=== PATIENT | female | born 1955 | race Caucasian/White ===

== ENCOUNTER → 2016-05-05 | Outpatient (CLI) | payer OTHER ==
[~2016-05-05] MED LIST: ASC500 PO; FER325 PO; GABA100C14 PO; HYDR-906 PO; PANT40TA4 PO; POLY17PO6 PO; TRAZ150T65 PO; ULT50 PO
--- NOTE | 2016-05-05 10:56 | RADRPT ---
PROCEDURE: XR pelvis/left hip. CLINICAL INDICATION: Hip pain TECHNIQUE: AP pelvis/lateral left hip view available for review. COMPARISON: 04/25/2016 FINDINGS: There is a left total hip replacement. There is no evidence of loosening of the prosthesis. There is normal mineralization, architecture and alignment. No fractures, dislocation or osseous lesions a re identified. The right hip joint is unremarkable. The SI joints are unremarkable. There are nor mal soft tissues. IMPRESSION: Left total hip replacement. Otherwise unremarkable examination. RPTAT: HGDB .Anmol Bragg MD, MD Date Time Electronically viewed and signed by .Anmol Bragg MD, on 05/05/2016 10:56 .B/
== END | disposition home or self-care (01) ==
LOC: HKI 10:04
PROVIDERS: ATTEND Orthopaedic Surgery
DX: Z47.1 Aftercare following joint replacement surgery (principal); Z16.12 Extended spectrum beta lactamase (ESBL) resistance; Z96.642 Presence of left artificial hip joint
CPT/HCPCS: 73502; Z7500; G0463

== ENCOUNTER → 2016-06-02 | Outpatient (CLI) | payer OTHER ==
[~2016-06-02] MED LIST changes: +TRAM50TA2 PO; -ULT50 PO
--- NOTE | 2016-06-02 11:26 | RADRPT ---
PROCEDURE: XR Left Hip and pelvis. CLINICAL INDICATION: Left hip pain. Pelvic pain. Postop. TECHNIQUE: Two views. Frontal pelvis and lateral left hip. COMPARISON: 04/25/2016. FINDINGS: There is no fracture or dislocation. The soft tissues are normal. There is a left hip total arthroplasty which appears satisfactory. The right hip is grossly normal. There is no lytic or blastic lesion. The upper pelvis is not included on the image. IMPRESSION: 1. Satisfactory postoperative appearance of the left hip. 2. Otherwise unremarkable study. RPTAT: QQ .Neal Renee MD, MD Date Time Electronically viewed and signed by .Neal Renee MD, MD on 06/02/2016 11:26 .R/
== END | disposition home or self-care (01) ==
LOC: HKI 11:03
PROVIDERS: ATTEND Orthopaedic Surgery
DX: Z47.1 Aftercare following joint replacement surgery (principal); M16.12 Unilateral primary osteoarthritis, left hip; Z96.642 Presence of left artificial hip joint
CPT/HCPCS: 73502; Z7500; G0463

== ENCOUNTER → 2016-08-07 | Outpatient (CLI) | payer OTHER ==
--- NOTE | 2016-08-07 11:51 | RADRPT ---
PROCEDURE: XR Left Hip and pelvis. CLINICAL INDICATION: Left hip pain. Pelvic pain. Postop. TECHNIQUE: Three views. Frontal pelvis. Frontal and lateral left hip. COMPARISON: 06/02/2016. FINDINGS: There is no fracture or dislocation. The soft tissues are normal. There is a left hip total arthroplasty which appears satisfactory. The right hip is grossly normal. There is no lytic or blastic lesion. The sacroiliac joints are unremarkable. IMPRESSION: 1. Satisfactory postoperative appearance of the left hip. 2. Otherwise unremarkable study. RPTAT: QQ .Nael Renee MD, Date Time Electronically viewed and signed by .Neal Renee MD, on 08/07/2016 11:51 .R/
== END | disposition home or self-care (01) ==
LOC: HKI 09:26
PROVIDERS: ATTEND Orthopaedic Surgery
DX: Z47.1 Aftercare following joint replacement surgery (principal); Z96.642 Presence of left artificial hip joint
CPT/HCPCS: 73502; Z7500; G0463

== ENCOUNTER 2016-09-09 11:43 | Emergency (ER) | payer OTHER ==
[~2016-09-09] VITALS: Ht 160 cm; Wt 52.0 kg
[2016-09-09 11:46] VITALS: Ht 160 cm; Wt 52.0 kg
[2016-09-09] MEDS ORDERED: METOCLOPRAMIDE 10 MG INJ IV STA (12:30)
[2016-09-09] MEDS ORDERED: SOD CHLORIDE 0.9% 1,000 ML IV STA (12:30)
[2016-09-09] MEDS ORDERED: FAMOTIDINE 20 MG TAB PO STA (12:30)
[2016-09-09 12:48] LABS: ADD SCAN DIFF NO
[2016-09-09 12:50] LABS: BASOPHILS % 0.5 % (0.0-2.0); EOSINOPHILS % 0.5 % (0.0-7.0); HEMATOCRIT 39.1 % (37.0-47.0); HEMOGLOBIN 12.5 g/dl (12.0-16.0); LYMPHOCYTES # 1.4 10^3/ul (0.8-2.9); LYMPHOCYTES % 32.2 % (15.0-51.0); MEAN CORPUSCULAR HEMOGLOBIN 29.7 pg (29.0-33.0); MEAN CORPUSCULAR VOLUME 92.9 fl (82.0-101.0); MONOCYTE # 0.3 10^3/ul (0.3-0.9); MONOCYTES % 5.7 % (0.0-11.0); NEUTROPHIL # 2.7 10^3/ul (1.6-7.5); NEUTROPHILS % 60.9 % (39.0-77.0); PLATELET COUNT 262 10^3/UL (140-415); RED BLOOD COUNT 4.21 10^6/ul (4.20-5.40); RED CELL DISTRIBUTION WIDTH 12.7 % (11.5-14.5); WHITE BLOOD COUNT 4.4 10^3/ul (4.8-10.8)
[2016-09-09 12:51] VITALS: BP 103/68; PULSE 68; RESP 14; TEMP 98.2
[2016-09-09] MEDS ORDERED: FAMOTIDINE 20 MG INJ IV ONE (13:00)
[2016-09-09 13:04] LABS: ALBUMIN 4.3 g/dl (3.3-4.9)
[2016-09-09 13:05] LABS: POTASSIUM 4.1 mmol/L (3.5-5.1)
[2016-09-09 13:07] LABS: ALBUMIN/GLOBULIN RATIO 1.48; BILIRUBIN,INDIRECT 0.4 mg/dl (0-1.1); BILIRUBIN,TOTAL 0.4 mg/dl (0.2-1.3); CREATININE 0.9 mg/dl (0.44-1.00); TOTAL PROTEIN 7.2 g/dl (6.1-8.1)
[2016-09-09 13:08] LABS: CALCIUM 9.3 mg/dl (8.4-10.2)
[2016-09-09] MEDS ORDERED: LIDOCAINE/MYLANTA 40 ML BTL PO STA (13:46)
[2016-09-09] MEDS ORDERED: traMADol 50 MG TAB PO ONE (14:00)
--- NOTE | 2016-09-09 14:04 | ERD ---
ER Documentation Chief Complaint Date/Time DATE: 09/09/16 TIME: 13:52 Chief Complaint mid abd pain , nausea x 1 week h/o pancreatitis HPI 61-year-old female with a history of alcoholism and pancreatitis, sober since December 2015 presenting with epigastric pain for about 1 week. She describes the pain is burning, 7 out of 10, nonradiating, with no associated nausea, vomiting, diarrhea. She denies any associated fevers or chills. Pain is worse with any food or liquids, nothing seems to make it better. She states that this feels like her pancreatitis. No melena or hematochezia. ROS All systems reviewed and are negative except as per history of present illness. Medications Home Meds Reported Medications Trazodone Hcl* (Trazodone Hcl*) 150 Mg Tablet, 150 MG PO QHS, #30 TAB 04/25/16 Discontinued Scripts Gabapentin* (Gabapentin*) 100 Mg Capsule, 100 MG PO TID, #90 CAP Prov:RADHA WHARTON PA-C 04/27/16 Hydrocodone/Acetaminophen ([place] 5-325 Tablet) 1 Each Tablet, 1 EACH PO Q6 Y for PAIN LEVEL 6-10, #60 TAB Prov:RADHA WHARTON PA-C 04/27/16 Tramadol HCl (Tramadol HCl) 50 Mg Tablet, 50 MG PO Q6 for 30 Days, #60 TAB Prov:RADHA WHARTON PA-C 04/27/16 Pantoprazole* (Pantoprazole*) 40 Mg Tablet.dr, 40 MG PO BID@06,18 for 30 Days, # 60 Prov:RADHA WHARTON PA-C 04/27/16 Polyethylene Glycol* (Miralax*) 17 Gm Powd.pack, 17 GM PO DAILY Y for CONSTIPATION, #30 PACKET Prov:CARTER PIÑA MD 04/27/16 Ascorbic Acid (Vitamin C) 500 Mg Tab, 500 MG PO DAILY, #30 TAB Prov:CARTER PIÑA MD 04/27/16 Ferrous Sulfate* (Ferrous Sulfate*) 325 Mg Tabec, 325 MG PO DAILY, #30 TAB Prov:CARTER PIÑA MD 04/27/16 Allergies Allergies: Coded Allergies: No Known Allergy (Unverified , 09/09/16) PMhx/Soc History of Surgery: Yes (Knee, Hip) Anesthesia Reaction: No Hx Neurological Disorder: No Hx Respiratory Disorders: No Hx Cardiac Disorders: No Hx Psychiatric Problems: No Hx Miscellaneous Medical Probl: Yes (Gallstone Pancreatitis) Hx Alcohol Use: Yes (Recovered Alcoholic, Last drink 1 year ago) Hx Substance Use: No Hx Tobacco Use: No Smoking Status: Former smoker FmHx Family History: No diabetes Physical Exam Vitals Vital Signs Date Time Temp Pulse Resp B/P Pulse Ox O2 Delivery O2 Flow Rate FiO2 09/09/16 12:51 98.2 68 14 103/68 100 Room Air 09/09/16 11:46 98.6 77 18 128/63 98 Physical Exam Const: Well-appearing, no distress, nontoxic Head: Atraumatic Eyes: Normal Conjunctiva ENT: Normal External Ears, Nose and Mouth. Neck: Full range of motion. No meningismus. Resp: Clear to auscultation bilaterally Cardio: Regular rate and rhythm, no murmurs Abd: Soft, minimal epigastric tenderness without rebound or guarding, non distended. Negative Smauel sign. normal bowel sounds Skin: No petechiae or rashes Back: No midline or flank tenderness Ext: No cyanosis, or edema Neur: Awake and alert Psych: Normal Mood and Affect Result Diagram: 09/09/16 1235 09/09/16 1235 Results 24 hrs Laboratory Tests Test 09/09/16 12:35 White Blood Count 4.410^3/ul Red Blood Count 4.2110^6/ul Hemoglobin 12.5g/dl Hematocrit 39.1% Mean Corpuscular Volume 92.9fl Mean Corpuscular Hemoglobin 29.7pg Mean Corpuscular Hemoglobin Concent 32.0g/dl Red Cell Distribution Width 12.7% Platelet Count 20233^3/UL Mean Platelet Volume 10.0fl Neutrophils % 60.9% Lymphocytes % 32.2% Monocytes % 5.7% Eosinophils % 0.5% Basophils % 0.5% Nucleated Red Blood Cells % 0.0/100WBC Neutrophils # 2.710^3/ul Lymphocytes # 1.410^3/ul Monocytes # 0.310^3/ul Eosinophils # 0.010^3/ul Basophils # 0.010^3/ul Nucleated Red Blood Cells # 0.010^3/ul Sodium Level 139mmol/L Potassium Level 4.1mmol/L Chloride Level 98mmol/L Carbon Dioxide Level 30mmol/L Anion Gap 15 Blood Urea Nitrogen 11mg/dl Creatinine 0.90mg/dl Glucose Level 90mg/dl Calcium Level 9.3mg/dl Total Bilirubin 0.4mg/dl Direct Bilirubin 0.00mg/dl Indirect Bilirubin 0.4mg/dl Aspartate Amino Transf (AST/SGOT) 21IU/L Alanine Aminotransferase (ALT/SGPT) 31IU/L Alkaline Phosphatase 47IU/L Total Protein 7.2g/dl Albumin 4.3g/dl Globulin 2.90g/dl Albumin/Globulin Ratio 1.48 Lipase 116U/L Current Medications Medications (Trade) Dose Ordered Sig/Dante Route PRN Reason Start Time Stop Time Status Last Admin Dose Admin Sodium Chloride (NS) 1,000 ml @ 1,000 mls/hr Q1H STAT IV 09/09/16 12:30 09/09/16 13:29 DC 09/09/16 12:43 Metoclopramide HCl (Reglan) 10 mg ONCE STAT IV 09/09/16 12:30 09/09/16 12:32 DC 09/09/16 12:44 Famotidine (Pepcid) 20 mg ONCE STAT PO 09/09/16 12:30 09/09/16 12:42 DC Famotidine (Pepcid Iv) 20 mg ONCE ONCE IV 09/09/16 13:00 09/09/16 13:01 DC 09/09/16 12:57 Miscellaneous Medication (Gi Cocktail (2)) 40 ml ONCE STAT PO 09/09/16 13:46 09/09/16 13:47 DC Procedures/MDM Patient is presenting with epigastric abdominal pain for the past week. Her vitals are stable and she is afebrile. She is low risk for acute coronary syndrome, aortic dissection, or PE. Differential includes but is not limited to biliary colic, biliary obstruction, acute cholecystitis, pancreatitis, hepatitis, gastritis, colitis. I have a low suspicion for ureterolithiasis or pyelonephritis. Labs were ordered to evaluate for above and were normal. I gave her Reglan, Pepcid, and GI cocktail with minimal relief of her symptoms. I offered her Rich[place] but she refused. In case her symptoms are secondary to gastritis or ulcer, I do not want her to take NSAIDs. Imaging is not indicated at this time. I spoke with the patient regarding her symptoms and her test results. I advised she see her primary care doctor in the next 2 days as she may need possible referral to GI. She was encouraged to return for any worsening symptoms or any new concerning symptoms in the meantime. Patient is amenable with the discharge plan. Departure Diagnosis: Primary Impression: Epigastric abdominal pain Condition: Stable RAVIN VASQUEZ MD September 09, 2016 14:04
== END 2016-09-09 14:36 | disposition home or self-care (01) ==
LOC: E/R 11:43
DX: R10.13 Epigastric pain (principal); Z87.891 Personal history of nicotine dependence
CPT/HCPCS: 36415; 80053; 83690; 85025; 96361; 96374; 96375; J2765; J7030; Z7502; Z7610

== ENCOUNTER 2018-08-12 08:05 | Emergency (ER) | payer OTHER ==
[~2018-08-12] VITALS: Wt 50.0 kg
[~2018-08-12 08:05] MED LIST changes: -ASC500 PO; -FER325 PO; -GABA100C14 PO; -HYDR-906 PO; -PANT40TA4 PO; -POLY17PO6 PO; -TRAM50TA2 PO
[2018-08-12] MEDS ORDERED: SOD CHLORIDE 0.9% 1,000 ML IV STA (08:53)
[2018-08-12] MEDS ORDERED: ONDANSETRON 4 MG INJ IV STA (08:53)
[2018-08-12] MEDS ORDERED: HYDROmorphONE 1 MG/ML SYG IV STA (08:53)
[2018-08-12] MEDS ORDERED: LORAZEPAM 2 MG INJ IV ONE ×2 (09:00→09:30)
--- NOTE | 2018-08-12 10:17 | ERD ---
ER Documentation Chief Complaint Chief Complaint 1 week drinking straight and today feels shaking, pt states needs detox HPI This is a 63-year-old female who is an ex-alcoholic who got stressed out due to relationship problems and has been binge drinking for the past 7 days she says that she is going into withdrawal and is having shakes. Her last drink was at 5 PM yesterday. She also has a history of chronic pancreatitis and says she thinks she might be having an exacerbation with some dull mid abdominal pain with no radiation to the back. No nausea vomiting diarrhea no chest pain or breathing problems ROS All systems reviewed and are negative except as per history of present illness. Medications Home Meds Reported Medications Trazodone Hcl* (Trazodone Hcl*) 150 Mg Tablet, 150 MG PO QHS, #30 TAB 04/25/16 Allergies Allergies: Coded Allergies: No Known Allergy (Unverified , 09/09/16) PMhx/Soc History of Surgery: Yes (Knee, Hip) Anesthesia Reaction: No Hx Neurological Disorder: No Hx Respiratory Disorders: No Hx Cardiac Disorders: No Hx Psychiatric Problems: No Hx Miscellaneous Medical Probl: Yes (Gallstone Pancreatitis) Hx Alcohol Use: Yes (2-3 BOTTLES WINE/DAILY X 1 WEEK) Hx Substance Use: No Hx Tobacco Use: No Smoking Status: Never smoker FmHx Family History: No coronary disease Physical Exam Vitals Vital Signs Date Temp Pulse Resp B/P (MAP) Pulse Ox O2 O2 Flow FiO2 Time Delivery Rate 08/12/18 98.0 77 20 125/76 99 08:10 (92) Physical Exam Const: Well-developed, well-nourished Head: Atraumatic, normocephalic Eyes: Normal Conjunctiva, PERRLA, EOMI, normal sclera, no nystagmus ENT: Normal External Ears, Nose and Mouth, moist mucus membranes. Neck: Full range of motion. No meningismus, no lymphadenopathy. Resp: Clear to auscultation bilaterally, no wheezing, rhonchi, rales Cardio: Regular rate and rhythm, no murmurs, S1 S2 present Abd: Soft, non tender x 4, non distended. Normal bowel sounds, no guarding or rebound, no pulsitile abdominal masses or bruits Skin: No petechiae or rashes, no ecchymosis , no maculopapular rash Back: No midline or flank tenderness Ext: No cyanosis, or edema, FROM x 4, normal inspection, neurovascularly intact x 4 Neur: Awake and alert, STR 5/5 x 4, sensation intact x 4, no focal findings, cerebellum intact Psych: Normal Mood and Affect Result Diagram: 08/12/18 0900 08/12/18 0900 Results 24 hrs Laboratory Tests Test 08/12/18 09:00 White Blood Count 5.2 10^3/ul Red Blood Count 4.18 10^6/ul Hemoglobin 12.9 g/dl Hematocrit 37.9 % Mean Corpuscular Volume 90.7 fl Mean Corpuscular Hemoglobin 30.9 pg Mean Corpuscular Hemoglobin Concent 34.0 g/dl Red Cell Distribution Width 12.1 % Platelet Count 231 10^3/UL Mean Platelet Volume 9.3 fl Immature Granulocytes % 0.400 % Neutrophils % 64.8 % Lymphocytes % 29.2 % Monocytes % 4.8 % Eosinophils % 0.2 % Basophils % 0.6 % Nucleated Red Blood Cells % 0.0 /100WBC Immature Granulocytes # 0.020 10^3/ul Neutrophils # 3.4 10^3/ul Lymphocytes # 1.5 10^3/ul Monocytes # 0.3 10^3/ul Eosinophils # 0.0 10^3/ul Basophils # 0.0 10^3/ul Nucleated Red Blood Cells # 0.0 10^3/ul Sodium Level 131 mmol/L Potassium Level 4.0 mmol/L Chloride Level 94 mmol/L Carbon Dioxide Level 27 mmol/L Anion Gap 10 Blood Urea Nitrogen 11 mg/dl Creatinine 0.67 mg/dl Est Glomerular Filtrat Rate mL/min > 60 mL/min Glucose Level 104 mg/dl Calcium Level 8.9 mg/dl Total Bilirubin 0.7 mg/dl Direct Bilirubin 0.00 mg/dl Indirect Bilirubin 0.7 mg/dl Aspartate Amino Transf (AST/SGOT) 30 IU/L Alanine Aminotransferase (ALT/SGPT) 22 IU/L Alkaline Phosphatase 59 IU/L Total Protein 7.0 g/dl Albumin 4.3 g/dl Globulin 2.70 g/dl Albumin/Globulin Ratio 1.59 Lipase 107 U/L Current Medications Medications Dose Sig/Dante Start Time Status Last (Trade) Ordered Route PRN Stop Time Admin Dose Reason Admin Sodium 1,000 ml @ Q1H STAT 08/12/18 DC 08/12/18 Chloride 1,000 mls/hr IV 08:53 09:06 08/12/18 09:52 1 mg ONCE STAT 08/12/18 DC Hydromorphone IV 08:53 HCl 08/12/18 08:54 (Dilaudid) Ondansetron 4 mg ONCE STAT 08/12/18 DC 08/12/18 HCl (Zofran IV 08:53 09:06 Inj) 08/12/18 08:54 Lorazepam 1 mg ONCE ONCE 08/12/18 DC 08/12/18 (Ativan) IV 09:00 09:05 08/12/18 09:01 Lorazepam 1 mg ONCE ONCE 08/12/18 DC 08/12/18 (Ativan) IV 09:30 09:33 08/12/18 09:31 Procedures/MDM Patient's labs are unremarkable She is gotten some Ativan here in she is more comfortable. Will discharge home with prescription for Ativan She is not in gross alcohol withdrawal Departure Diagnosis: Primary Impression: Alcohol withdrawal syndrome Complication of substance-induced condition: uncomplicated Qualified Codes: F10.230 - Alcohol dependence with withdrawal, uncomplicated Condition: Stable SATNAM STUART DO Aug 12, 2018 10:17
[2018-08-12] MEDS ORDERED: LORA1TAB PO (10:18)
[2018-08-12 10:25] VITALS: BP 115/56; PULSE 75; RESP 17
== END 2018-08-12 10:25 | disposition home or self-care (01) ==
LOC: E/R 08:05
DX: F10.230 Alcohol dependence with withdrawal, uncomplicated (principal)
CPT/HCPCS: 36415; 80053; 83690; 85025; 96374; 96375; J2060; J2405; J7030; Z7502; J1170

== ENCOUNTER 2018-10-05 11:57 | Emergency (ER) | payer OTHER ==
[~2018-10-05] VITALS: Ht 157.5 cm; Wt 53.0 kg
[~2018-10-05 11:57] MED LIST changes: +LORA1TAB PO
[2018-10-05 12:04] VITALS: Ht 157.5 cm; Wt 53.0 kg
[2018-10-05] MEDS ORDERED: SOD CHLORIDE 0.9% 1,000 ML IV STA (14:15)
[2018-10-05] MEDS ORDERED: MAGNESIUM SULFATE 2 GM, MULTIVITAMINS 10 ML, THIAMINE 100 MG, FOLIC ACID 1 MG in SOD CH... IV STA (14:15)
[2018-10-05] MEDS ORDERED: LORAZEPAM 2 MG INJ IV STA (14:15)
[2018-10-05] MEDS ORDERED: ONDANSETRON 4 MG INJ IV STA (14:27)
[2018-10-05] MEDS ORDERED: FAMOTIDINE 20 MG INJ IV STA (14:27)
--- NOTE | 2018-10-05 14:27 | ERD ---
ER Documentation Chief Complaint Chief Complaint abd pain with nuasea/vomiting x 2 days HPI This is a very pleasant 63-year-old female. The patient indicates she has a history of alcohol abuse. She is been in AA and sober for the past 2 years. The patient indicates 2 weeks ago she had a stressor in her life with her relationship. She ended relapsing and indicates that she has been having 3 bottles of wine a day for the past 3 weeks. She had her last drink at 8 AM this morning, 6 hours prior to arrival. The patient stated she has had multiple episodes of nonbloody nonbilious emesis. She is experience some palpitations w ith no chest pressure. She complains of an epigastric sharp shooting pain. The pain is worse when she lies supine and better when she leans forward. She indicates she does have a history of pancreatitis. She denies any hemoptysis hematemesis or melanotic stools. She has no suicidal homicidal thoughts or ideations. ROS All systems reviewed and are negative except as per history of present illness. Medications Home Meds Active Scripts Chlordiazepoxide* (Chlordiazepoxide*) 25 Mg Capsule, 25 MG PO Q8 PRN for ETOH WITHDRAWAL SYMPTOMS, #30 CAP Prov:ARMEN VELÁZQUEZ MD 10/05/18 Reported Medications Trazodone Hcl* (Trazodone Hcl*) 150 Mg Tablet, 150 MG PO QHS, #30 TAB 10/05/18 Discontinued Reported Medications Trazodone Hcl* (Trazodone Hcl*) 150 Mg Tablet, 150 MG PO QHS, #30 TAB 04/25/16 Discontinued Scripts Lorazepam* (Lorazepam*) 1 Mg Tablet, 1 MG PO Q8H PRN for ANXIETY, #10 TAB Prov:SATNAM STUART DO 08/12/18 Allergies Allergies: Coded Allergies: No Known Allergy (Unverified , 10/05/18) PMhx/Soc History of Surgery: Yes (Knee, Hip) Anesthesia Reaction: No Hx Neurological Disorder: No Hx Respiratory Disorders: No Hx Cardiac Disorders: No Hx Psychiatric Problems: No Hx Miscellaneous Medical Probl: Yes (Gallstone Pancreatitis) Hx Alcohol Use: Yes (2-3 BOTTLES WINE/DAILY X 1 WEEK) Hx Substance Use: No Hx Tobacco Use: No Physical Exam Vitals Vital Signs Date Temp Pulse Resp B/P (MAP) Pulse Ox O2 O2 Flow FiO2 Time Delivery Rate 10/05/18 82 16 136/81 95 Room Air 16:30 (99) 10/05/18 76 16 118/64 95 Room Air 14:30 (82) 10/05/18 97.9 88 18 150/69 97 12:04 (96) Physical Exam Constitutional:Well-developed. Well-nourished. HEENT:Normocephalic. Atraumatic.Pupils were equal round reactive to light. Dry mucous membranes.No tonsillar exudates. Neck: No nuchal rigidity. No lymphadenopathy. No posterior cervical spine t enderness or step-offs. Respiratory: Not using accessory muscles of respiration.Lungs were clear to auscultation bilaterally. No rhonchi. No rales. No wheezing. Cardiovascular: Regular rate regular rhythm.No murmurs. No rubs were appreciated.S1, S2 normal. Distal pulses are palpable 2+ bilaterally. GI: Abdomen was soft. Epigastric tenderness.. Non Distended. No pulsatile abdominal masses or bruits. No rebound. No guarding. Bowel sounds were present and normal. Muscle skeletal: Full range of motion of both the upper and lower extremities bilaterally.Normal muscle tone.No assymetrical calf tenderness or swelling. Skin: No petechia, no purpura. No lesions on the palms or the soles of the feet. No maculopapular rash. NEURO: Patient was alert, awake, orientated x3.No facial droop. Gait observed and normal with no ataxia.Speech had regular rate and rhythm. No focal neurological deficits. Asterixis. Result Diagram: 10/05/18 1429 10/05/18 1429 Results 24 hrs Laboratory Tests Test 10/05/18 14:29 White Blood Count 5.0 10^3/ul Red Blood Count 4.12 10^6/ul Hemoglobin 12.6 g/dl Hematocrit 38.4 % Mean Corpuscular Volume 93.2 fl Mean Corpuscular Hemoglobin 30.6 pg Mean Corpuscular Hemoglobin Concent 32.8 g/dl Red Cell Distribution Width 12.9 % Platelet Count 243 10^3/UL Mean Platelet Volume 9.0 fl Immature Granulocytes % 0.400 % Neutrophils % 54.4 % Lymphocytes % 36.6 % Monocytes % 6.4 % Eosinophils % 0.4 % Basophils % 1.8 % Nucleated Red Blood Cells % 0.0 /100WBC Immature Granulocytes # 0.020 10^3/ul Neutrophils # 2.7 10^3/ul Lymphocytes # 1.8 10^3/ul Monocytes # 0.3 10^3/ul Eosinophils # 0.0 10^3/ul Basophils # 0.1 10^3/ul Nucleated Red Blood Cells # 0.0 10^3/ul Prothrombin Time 11.0 Sec Prothrombin Time Ratio 0.9 INR International Normalized Ratio 0.78 Activated Partial Thromboplast Time 20.9 Sec Sodium Level 141 mmol/L Potassium Level 4.0 mmol/L Chloride Level 102 mmol/L Carbon Dioxide Level 31 mmol/L Anion Gap 8 Blood Urea Nitrogen 10 mg/dl Creatinine 0.66 mg/dl Est Glomerular Filtrat Rate mL/min > 60 mL/min Glucose Level 111 mg/dl Calcium Level 9.8 mg/dl Total Bilirubin 0.6 mg/dl Direct Bilirubin 0.00 mg/dl Indirect Bilirubin 0.6 mg/dl Aspartate Amino Transf (AST/SGOT) 38 IU/L Alanine Aminotransferase (ALT/SGPT) 28 IU/L Alkaline Phosphatase 53 IU/L Total Protein 7.2 g/dl Albumin 4.4 g/dl Globulin 2.80 g/dl Albumin/Globulin Ratio 1.57 Amylase Level 113 U/L Lipase 255 U/L Salicylates Level < 1.0 mg/dl Acetaminophen Level < 10.0 ug/ml Ethyl Alcohol Level 139.0 mg/dl Current Medications Medications Dose Sig/Dante Start Time Status Last (Trade) Ordered Route PRN Stop Time Admin Dose Reason Admin Sodium 1,000 ml @ Q1H STAT 10/05/18 DC 10/05/18 Chloride 1,000 mls/hr IV 14:15 10/05/18 15:43 15:14 Magnesium 1,015.2 ml Q2H2M STAT 10/05/18 DC 10/05/18 Sulfate 2 @ 500 mls/ IV 14:15 10/05/18 15:21 gm/ hr 16:16 Multivitamins 10 ml/Thiamine HCl 100 mg/Folic Acid 1 mg/Sodium Chloride Lorazepam 1 mg ONCE STAT 10/05/18 DC 10/05/18 (Ativan) IV 14:15 10/05/18 15:21 14:17 100 mg ONCE ONCE 10/05/18 DC 10/05/18 Chlordiazepox PO 14:30 10/05/18 15:21 reny 14:31 (Librium) Ondansetron 4 mg ONCE STAT 10/05/18 DC 10/05/18 HCl (Zofran IV 14:27 10/05/18 15:20 Inj) 14:28 Famotidine 20 mg ONCE STAT 10/05/18 DC 10/05/18 (Pepcid Iv) IV 14:27 10/05/18 15:20 14:28 Procedures/MDM This Is a very pleasant 63-year-old female who presented to the emergency department with signs of mild alcohol withdrawal. She immediately was placed on residential monitor continuous pulse oximetry and IV access was established by nursing staff. The patient received a liter bolus of normal saline was given antipyretics including Zofran and also IV Pepcid. She was given Ativan and Li brium for her mild alcohol withdrawal as well as a banana bag. The patient had no severe left leg abnormalities. Her symptoms had significantly improved. Observation Note: Time: 4 hours Family Hx: No Hypertension Evaluation: Multiple exams showed improving symptoms and no evidence of impending delirium tremors The patient was discharged home in fair condition. They were instructed to return to the emergency department at any time if there was any worsening of their condition. The patient stated they would follow up with their PCP in the next 24-48 hours to initiate a suitable medication regimen under the care of their PCP as well as to allow their PCP to monitor any drug reactions. The sheryl henson was discharged home with prescriptions after they gave informed consent to the new medication. They were also fully informed by myself on the adverse effects and adverse drug interactions in order to provide adequate safeguards to prevent possible adverse reactions to medications. Departure Diagnosis: Primary Impression: Alcohol withdrawal Complication of substance-induced condition: uncomplicated Qualified Codes: F10.230 - Alcohol dependence with withdrawal, uncomplicated Condition: Fair ARMEN VELÁZQUEZ MD Oct 05, 2018 14:27
[2018-10-05] MEDS ORDERED: CHLORDIAZEPOXIDE 25 MG CAP PO ONE (14:30)
[2018-10-05] MEDS ORDERED: TRAZ150T65 PO (16:06)
[2018-10-05] MEDS ORDERED: CHLO25CA9 PO (17:30)
[2018-10-05 17:33] VITALS: BP 133/78; PULSE 78; RESP 16
== END 2018-10-05 17:33 | disposition home or self-care (01) ==
LOC: E/R 11:57
DX: F10.230 Alcohol dependence with withdrawal, uncomplicated (principal)
CPT/HCPCS: 80053; 80307; 82150; 83690; 85025; 85610; 85730; 93005; 96374; 96375; J2060; J2405; J3411; J3475; J7030; Z7502; Z7610

== ENCOUNTER 2018-11-11 20:03 | Emergency (ER) | payer SELFPAY ==
[~2018-11-11 20:03] MED LIST changes: +CHLO25CA9 PO; -LORA1TAB PO
== END 2018-11-11 20:15 | disposition left against medical advice (07) ==
LOC: E/R 20:03
DX: Z53.21 Procedure and treatment not carried out due to patient leaving prior to being seen by health care provider (principal)